=== PATIENT | female | born 1945 | race Caucasian/White ===

== ENCOUNTER 2025-07-03 01:54 | Emergency (ER) | payer MEDICARE, OTHER ==
[~2025-07-03] VITALS: Ht 160 cm; Wt 49.9 kg
[2025-07-03] MEDS ORDERED: HYDROMORPHONE 1 MG/1 ML DISP.SYRIN ONE (04:12)
[2025-07-03] MEDS ORDERED: ONDANSETRON 4 MG/2 ML VIAL ONE (04:12)
[2025-07-03] MEDS: ONDANSETRON 4 MG/2 ML VIAL IV ONE (04:23)
[2025-07-03] MEDS: HYDROMORPHONE 1 MG/1 ML DISP.SYRIN IV ONE (04:23)
[2025-07-03 05:01] LABS: PLATELET COUNT (AUTO) 272 K/uL (179-408); RED BLOOD CELL COUNT(AUTO) 4.20 MIL/uL (3.63-4.92); RED CELL DISTRIBUTION WIDTH 13.3 % (12.3-17.7); WHITE BLOOD COUNT (AUTO) 9.1 K/uL (3.8-11.8)
[2025-07-03 05:08] LABS: CREATININE 0.8 mg/dL (0.6-1.3); SODIUM SERUM 135 mmol/L (136-145); UREA NITROGEN, BLOOD 24 mg/dL (7-18)
[2025-07-03 05:13] LABS: ASPARTATE AMINOTRANSFERASE 13 U/L (15-37); TOTAL PROTEIN, SERUM 6.5 g/dL (6.4-8.2)
[2025-07-03 06:00] VITALS: BP 151/74
[2025-07-03 08:37] VITALS: BP 141/78; O2SAT 99
[2025-07-03] MEDS ORDERED: ACET1TAB23 PO (08:42)
[2025-07-03] MEDS ORDERED: METH-806 PO (08:42)
== END 2025-07-03 09:33 | disposition home or self-care (01) ==
LOC: ER 02:02
DX: M54.50 Low back pain, unspecified (principal); R07.9 Chest pain, unspecified
CPT/HCPCS: 99285; 96374; 72131; 71045; 96375; 80076; 80048; 83880; 85025; 85379; 85651; 85730; 84484; 36415; 93005; J2405; J1171; A4606; A4663